=== PATIENT | female | born 1965 | race Caucasian/White ===

== ENCOUNTER → 2016-09-18 | Outpatient (CLI) | payer OTHER ==
--- NOTE | 2016-09-18 10:38 | WWHP ---
DATE OF SERVICE: 09/18/2016 CHIEF COMPLAINT: The patient is here for her routine gynecologic exam and mammogram. HPI: This is a 51-year-old, G2, P2 with an LMP of 2011. She is status post vaginal hysterectomy. This was done for precancerous changes of the cervix. A Pap smear was negative last year and Pap smears have now been discontinued. She is without gynecologic complaints. 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 She also has seasonal allergies, type 2 diabetes, chronic hypertension, elevated cholesterol and gastroesophageal reflux disease. MEDICATIONS: 1. Zyrtec p.r.n. 2. Metformin 500 mg daily. 3. Omeprazole 20 mg daily. 4. Cozaar 25 mg daily. 5. Multivitamin 1 daily. 6. Pravastatin 20 mg daily. 7. Calcium supplement 500 mg daily. ALLERGIES: No known drug allergies. 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 SOCIAL HISTORY: She denies tobacco, alcohol, and dug use. She has been since 1986. She is dating somebody since 2016, but she states she is not sexually active. She is considered disabled because of her hearing loss. She has 2 grandchildren. REVIEW OF SYSTEMS: Weight has been stable. She denies respiratory, cardiac, or GI problems. PHYSICAL EXAM: Blood pressure 111/66. Height 5 feet 4 inches. Weight 254 pounds. Temperature 96.1, pulse 82. This a well-developed, heavyset white female who is alert and oriented x3 in no acute distress. HEENT is within normal limits. NECK: Supple without mass or thyromegaly. CHEST AND LUNGS: Clear to auscultation. HEART: Regular rate and rhythm. Breasts are without mass or discharge. Axillary exam is negative for adenopathy. BACK: Negative for CVA tenderness. ABDOMEN: Obese, soft, nontender, without palpable masses. PELVIC EXAM: Normal external genitalia. Vagina appears normal with no evidence of prolapse and no significant atrophy. Bimanual exam is negative for mass or tenderness. Rectovaginal exam is negative for mass or tenderness and is negative for occult blood. EXTREMITIES: Nontender. IMPRESSION: A 51-year-old female, status post vaginal hysterectomy for precancerous changes with normal gynecologic exam. PLAN: 1. Pap smears have been discontinued. 2. Self breast examination was discussed. 3. Mammogram will be done today. 4. Osteoporosis prevention was discussed. 5. She will return in one year.
--- NOTE | 2016-09-18 10:48 | MM ---
Reason for exam: screening (asymptomatic). Last mammogram was performed 1 year and 4 months ago. History: Patient has history of endometrial cancer at age 45. Family history of breast cancer in grandmother. Benign stereotactic core biopsy of the right breast, February 17, 2004. Core biopsy of the right breast. Physical Findings: A clinical breast exam by your physician is recommended on an annual basis and results should be correlated with mammographic findings. MG Screening Mammo w CAD Bilateral CC and MLO view(s) were taken. Prior study comparison: June 01, 2015, bilateral MG screening mammo w CAD. May 21, 2014, left breast MG work up mamm w CAD LT. The breast tissue is almost entirely fat. Previous mammotome biopsy within the right breast. There is chronic nodularity bilaterally. No significant changes when compared with prior studies. ASSESSMENT: Benign, BI-RAD 2 RECOMMENDATION: Routine screening mammogram of both breasts in 1 year.
== END | disposition home or self-care (01) ==
LOC: WWCWWP 07:52
PROVIDERS: ATTEND Obstetrics & Gynecology
DX: Z12.31 Encounter for screening mammogram for malignant neoplasm of breast (principal)

== ENCOUNTER → 2017-08-22 | Outpatient (CLI) | payer OTHER ==
[2017-08-22 08:05] LABS: ALT 23 U/L (9-52); AST 21 U/L (14-36); Albumin 4.1 g/dL (3.5-5.0); Alkaline Phosphatase 129 U/L (38-126); Amylase 53 U/L (30-110); Anion Gap 12 mmol/L; Blood Urea Nitrogen 10 mg/dL (7-17); Calcium 9.1 mg/dL (8.4-10.2); Carbon Dioxide 29 mmol/L (22-30); Chloride 103 mmol/L (98-107); Cholesterol 128 mg/dL (<200); Glucose 127 mg/dL (74-99); HDL Cholesterol 40 mg/dL (40-60); LDL Cholesterol,Calculated 61 mg/dL (0-99); Lipase 67 U/L (23-300); Potassium 5.3 mmol/L (3.5-5.1); Sodium 144 mmol/L (137-145); Total Bilirubin 0.6 mg/dL (0.2-1.3); Total Protein 6.8 g/dL (6.3-8.2); Triglycerides 135 mg/dL (<150)
--- NOTE | 2017-08-22 13:12 | US ---
EXAMINATION TYPE: US abdomen complete DATE OF EXAM: 08/22/2017 COMPARISON: NONE CLINICAL HISTORY: R12 Heartburn,R19.7 diarrhea. EXAM MEASUREMENTS: Liver Length: 16.3 cm Gallbladder Wall: 0.3 cm CBD: 0.4 cm Spleen: 12.8 cm Right Kidney: 11.2 x 4.4 x 4.4 cm Left Kidney: 11.2 x 6.1 x 4.7 cm Morbidly obese patient with extensive bowel gas. Technically difficult study. Pancreas: Mostly obscured by bowel gas, portions visualized wnl Liver: Increased attenuation, decreased visualization of vessels, hypoechoic area found in left lobe measuring 1.5 x 1.6 x 2.0cm Gallbladder: partially obscured by bowel gas, cholelithiasis without wall thickening Evidence for sonographic Curiel's sign: no CBD: wnl Spleen: Upper limits of normal Right Kidney: wnl Left Kidney: inferior lateral portion obscured by bowel gas, portions visualized wnl Upper IVC: not well visualized Abd Aorta: Some portions obscured by overlying bowel gas, portions visualized wnl The visualized liver is heterogeneously hyperechoic. Evaluation for focal masses is suboptimal due to the heterogeneity. Technologist hercules poorly defined 2.0 cm area anterior left hepatic lobe. No intr ahepatic ductal dilatation is seen. The intrahepatic portion of the IVC and visualized abdominal aort a are within normal limits. Shadowing mobile gallstones are present. There is no pericholecystic flui d or abnormal gallbladder wall thickening. Common bile duct is unremarkable. The visualized portions of the pancreas are heterogeneous without worrisome solid or cystic mass or ductal dilatation. Port ions are secured by overlying bowel gas per technologist. The spleen is unremarkable. Kidneys are sy mmetric and free of hydronephrosis. No renal lesions are seen on images saved. IMPRESSION: 1. Gallstones without secondary ultrasound evidence for acute cholecystitis. 2. Heterogeneous hyperechoic appearance of liver could reflect product of diffuse fatty infiltration or underlying hepatocellular disease. Former is favored. Cannot exclude 2 cm lesion anterior left hep atic lobe though favor focal fatty sparing. Need to further investigate by liver protocol contrast en hanced CT or MRI should be based on clinical and lab correlation. Spleen measures upper limits of nor mal in size.
== END | disposition home or self-care (01) ==
LOC: RADUSWWP 07:10
PROVIDERS: ATTEND Family Medicine
DX: K80.20 Calculus of gallbladder without cholecystitis without obstruction (principal); R93.5 Abnormal findings on diagnostic imaging of other abdominal regions, including retroperitoneum; R19.7 Diarrhea, unspecified; R12 Heartburn; E78.2 Mixed hyperlipidemia; I10 Essential (primary) hypertension
CPT/HCPCS: 76700; 80053; 80061; 82150; 83690; 84443

== ENCOUNTER → 2017-09-13 | Outpatient (CLI) | payer MEDICARE, OTHER ==
[2017-09-13 07:09] LABS: Blood Urea Nitrogen 14 mg/dL (7-17)
--- NOTE | 2017-09-13 09:10 | CT ---
EXAMINATION TYPE: CT abdomen w con DATE OF EXAM: 09/13/2017 HISTORY: RUQ pain, abn US CT DLP: 1400mGycm Automated Exposure Control for Dose Reduction was Utilized. CONTRAST: CT scan of the abdomen is performed with IV Contrast, patient injected with 100 mL of Isovue 300. COMPARISON: None. FINDINGS: LUNG BASES: No significant abnormality is appreciated. LIVER/GB: There is mild hepatic steatosis throughout the liver. More focally around the avinash hepatis there is a geographic area of hypoattenuation with vessels coursing through this area. This is a com mon location for more focal fatty infiltration and vessels coursing through the area of fever benign parenchymal change rather than infiltrating neoplasm. The previously seen abnormality within the left hepatic lobe on ultrasound is not reproduced on CT. No focal lesion is seen in that location. No int rahepatic biliary ductal dilatation is present. PANCREAS: No significant abnormality is seen. No ductal dilatation. SPLEEN: No significant abnormality is seen. No splenomegaly. ADRENALS: No nodularity or thickening. KIDNEYS: Kidneys enhance symmetrically. No hydronephrosis. BOWEL: Small descending duodenal diverticulum is incidentally noted. Bowel is nondilated. There is no distention of the transverse colon and hepatic flexure that may relate to mild colitis with surround ing prominence of the vasa recta or incomplete distention. Appendix is air-filled and within normal l imits. LYMPH NODES: No greater than 1cm abdominal or pelvic lymph nodes are appreciated. OSSEOUS STRUCTURES: Mild multilevel degenerative changes of the visualized spine. No suspicious osseo us lesions. IMPRESSION: Mild degree of hepatic steatosis with more focal geographic probable area of focal fatty infiltration around the avinash hepatis that appears geographic. This overall appears nonaggressive as vasculature courses through the parenchyma. Notably the focal lesion seen on the prior ultrasound has no CT corre late and could be artifactual or related to subtle focal fatty sparing. Correlation with liver functi on tests is recommended. If there is further clinical concern MR could be confirmatory.
== END ==
LOC: RADCTMAIN 06:34
PROVIDERS: ATTEND Family Medicine
DX: K76.0 Fatty (change of) liver, not elsewhere classified (principal)
CPT/HCPCS: 82565; 84520; 74160; 36415; Q9967

== ENCOUNTER → 2017-12-31 | Outpatient (CLI) | payer MEDICARE, OTHER ==
[2017-12-31 10:50] VITALS: BP 140/65; PULSE 76; TEMP 96.7; BMI 40.1
--- NOTE | 2017-12-31 11:31 | P.HPOB ---
History of Present Illness H&P Date: 12/31/17 Chief Complaint: The patient is here for her routine gynecologic exam and mammogram. This is a 52-year-old G2 PII with an LMP of 2011. She is status post vaginal hysterectomy. She is without gynecologic complaints. She has noticed mild hot flashes over the past one month. Review of Systems She has had a net loss of 5 pounds over the last year. She gained up to 275 pounds and lost about 25 pounds with diet and exercise. She denies respiratory , cardiac, or G.I. problems. Past Medical History Past Medical History: Diabetes Mellitus (Type II diabetes), GERD/Reflux, Hearing Disorder / Deafness (Born with partial deafness. Wears bilateral hearing aids.), Hyperlipidemia, Hypertension Additional Past Medical History / Comment(s): HIATAL HERNIA. Seasonal allergies. 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 She had a hysterectomy for "precancerous changes" in 2011. History of Any Multi-Drug Resistant Organisms: None Reported Past Surgical History: Bladder Surgery, Hysterectomy (Vaginal 2011), Tonsillectomy Additional Past Surgical History / Comment(s): BLADDER SLING PROCEDURE. Colonoscopy 2014. Past Anesthesia/Blood Transfusion Reactions: Postoperative Nausea & Vomiting ( PONV) Past Psychological History: No Psychological Hx Reported Smoking Status: Never smoker Past Alcohol Use History: None Reported Past Drug Use History: None Reported Additional History: She is and is considered disabled because of her hearing loss. - Past Family History Mother Family Medical History: Cancer (Long and cervical cancer) Additional Family Medical History / Comment(s): BREAST CA Father Family Medical History: Cancer, COPD, Diabetes Mellitus Additional Family Medical History / Comment(s): LUNG CA Medications and Allergies Home Medications Medication Instructions Recorded Confirmed Type metFORMIN HCL [metFORMIN HCL ER] PO HS 12/31/17 History Allergies Allergy/AdvReac Type Severity Reaction Status Date / Time No Known Allergies Allergy Verified 12/31/17 10:30 Exam Vital Signs Temp Pulse BP 12/31/17 10:46 96.7 F L 76 140/65 Intake and Output 12/30/17 12/31/17 12/31/17 22:59 06:59 14:59 Other: Weight 112.945 kg Height 5'6", BMI 40.2. This is a well-developed well-nourished heavyset white female who is alert and oriented times 3 in no acute distress. HEENT: Within normal limits. NECK: Supple without mass or thyromegaly. CHEST AND LUNGS: Clear to auscultation. HEART: Regular rate and rhythm. BREASTS: Are without mass or discharge. AXILLARY EXAM: Negative for adenopathy. BACK: Negative for CVA tenderness. ABDOMEN: Soft, obese, nontender, without palpable masses. PELVIC EXAM: External genitalia appears normal with minimal atrophy. Vagina appears normal minimal atrophy. There is no evidence of prolapse. Bimanual examination is negative for mass or tenderness. RECTAL EXAM: Rectovaginal exam is negative for mass or tenderness and is negative for occult blood. EXTREMITIES: Nontender. IMPRESSION: 1. 52-year-old perimenopausal female status post vaginal hysterectomy for "pre- cancerous changes". 2. Mild vasomotor symptoms. PLAN: 1. Pap smear on 06/01/15 was negative. Pap smears have been discontinued. 2. Self breast awareness was discussed with the patient. 3. Mammogram will be done today. 4. Osteoporosis prevention was discussed. 5. She will return one year.
--- NOTE | 2018-01-01 11:47 | MM ---
Reason for exam: screening (asymptomatic). Last mammogram was performed 1 year and 3 months ago. History: Patient has history of endometrial cancer at age 45. Family history of breast cancer in grandmother. Benign stereotactic core biopsy of the right breast, February 17, 2004. Core biopsy of the right breast. Physical Findings: A clinical breast exam by your physician is recommended on an annual basis and results should be correlated with mammographic findings. MG Screening Mammo w CAD Bilateral CC and MLO view(s) were taken. Prior study comparison: September 18, 2016, bilateral MG screening mammo w CAD. June 01, 2015, bilateral MG screening mammo w CAD. There are scattered fibroglandular densities. There are benign appearing round calcifications in the left breast. Previous mammotome biopsy in the right breast. There is chronic nodularity bilaterally. There is no discrete abnormality. ASSESSMENT: Benign, BI-RAD 2 RECOMMENDATION: Routine screening mammogram of both breasts in 1 year.
== END | disposition home or self-care (01) ==
LOC: WWCWWP 10:09
PROVIDERS: ATTEND Obstetrics & Gynecology
DX: Z12.31 Encounter for screening mammogram for malignant neoplasm of breast (principal)
CPT/HCPCS: 77067

== ENCOUNTER → 2019-05-15 | Outpatient (CLI) | payer MEDICARE, OTHER ==
--- NOTE | 2019-05-15 10:18 | BD ---
EXAMINATION TYPE: Axial Bone Density DATE OF EXAM: 05/15/2019 COMPARISON: NONE CLINICAL HISTORY: M 89.9 Height: 5 FT 4 IN Weight: 243 FRAX RISK QUESTIONS: Alcohol (3 or more units per day): NO Family History (Parent hip fracture): NO Glucocorticoids (More than 3mos): NO (Ex: prednisone, prednisolone, methylprednisolone, dexamethasone, and hydrocortisone). History of Fracture in Adulthood: NO Secondary Osteoporosis: 1. Type 1 Diabetes: NO 2. Hyperthyroidism: NO 3. Menopause before 45: NO 4. Malnutrition: NO 5. Chronic liver disease: NO Rheumatoid Arthritis: NO Current Tobacco Use: NO RISK FACTORS HISTORY OF: Active: YES Postmenopausal woman: PART HYST AGE 48 Lost more than 2 inches in height since high school: YES MEDICATIONS: Additional Medications: METFORMIN, CHOLESTEROL MEDS, BLOOD PRESSURE MEDS, VITAMINS Additional History: EXAM MEASUREMENTS: Bone mineral densitometry was performed using the [employer] System. Bone mineral density as measured about the Lumbar spine is: ----- L1-L4(G/cm2): 1.482 T Score Values are as follows: ----- L2: 1.6 ----- L3: 3.9 ----- L4: 2.6 ----- L1-L4: 2.5 BASELINE Bone mineral density about the R hip (g/cm2): 1.023 Bone mineral density about the L hip (g/cm2): 0.969 T Score values are as follows: -----R Neck: -0.1 -----L Neck: -0.5 -----R Total: 1.5 -----L Total: 1.3 BASELINE IMPRESSION: Normal (Values between +1 and -1 indicate normal bone mass). Consider repeating this study in 5 year s or sooner if there is some new clinical indication. NOTE: T-SCORE=SD OF THE YOUNG ADULT MEAN.
--- NOTE | 2019-05-18 11:30 | MM ---
Reason for exam: screening (asymptomatic). Last mammogram was performed 1 year and 4 months ago. History: Patient has history of endometrial cancer at age 45. Family history of breast cancer in grandmother. Benign stereotactic core biopsy of the right breast, February 17, 2004. Core biopsy of the right breast. Physical Findings: A clinical breast exam by your physician is recommended on an annual basis and results should be correlated with mammographic findings. MG 3D Screening Mammo W/Cad Bilateral CC and MLO view(s) were taken. Prior study comparison: December 31, 2017, bilateral MG screening mammo w CAD. September 18, 2016, bilateral MG screening mammo w CAD. There are scattered fibroglandular densities. Benign appearing bilateral calcifications. No suspicious abnormality. Right biopsy marker noted. No significant changes when compared with prior studies. ASSESSMENT: Benign, BI-RAD 2 RECOMMENDATION: Routine screening mammogram of both breasts in 1 year.
== END | disposition home or self-care (01) ==
LOC: RADMAMWWP 08:26
PROVIDERS: ATTEND Internal Medicine
DX: Z12.31 Encounter for screening mammogram for malignant neoplasm of breast (principal); M89.9 Disorder of bone, unspecified; Z78.0 Asymptomatic menopausal state
CPT/HCPCS: 77063; 77067; 77080

== ENCOUNTER → 2019-06-22 | Outpatient (CLI) | payer MEDICARE, OTHER | END | disposition home or self-care (01) ==

== ENCOUNTER → 2020-10-18 | Outpatient (CLI) | payer MEDICARE ==
--- NOTE | 2020-10-20 11:41 | MM ---
Reason for exam: screening (asymptomatic). Last mammogram was performed 1 year and 5 months ago. History: Patient has history of endometrial cancer at age 45. Family history of breast cancer in grandmother. Benign stereotactic core biopsy of the right breast, February 17, 2004. Core biopsy of the right breast. Physical Findings: A clinical breast exam by your physician is recommended on an annual basis and results should be correlated with mammographic findings. MG 3D Screening Mammo W/Cad Bilateral CC and MLO view(s) were taken. Prior study comparison: May 15, 2019, bilateral MG 3d screening mammo w/cad. December 31, 2017, bilateral MG screening mammo w CAD. The breast tissue is almost entirely fat. Stable benign calcifications. There is no discrete abnormality. ASSESSMENT: Benign, BI-RAD 2 RECOMMENDATION: Routine screening mammogram of both breasts in 1 year.
== END | disposition home or self-care (01) ==
LOC: RADMAMWWP 07:59
PROVIDERS: ATTEND Internal Medicine
DX: Z12.31 Encounter for screening mammogram for malignant neoplasm of breast (principal); Z85.42 Personal history of malignant neoplasm of other parts of uterus; Z80.3 Family history of malignant neoplasm of breast
CPT/HCPCS: 77063; 77067

== ENCOUNTER → 2021-09-13 | Outpatient (CLI) | payer MEDICARE ==
[2021-09-13 10:25] VITALS: BP 136/88; PULSE 98; RESP 18; TEMP 98.2
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
[2021-09-14 14:54] LABS: Gardnerella Negative (Negative); Source Vagina; Trichomonas Negative (Negative)
--- NOTE | 2021-09-15 10:56 | P.PN ---
Progress Note - Text Progress Note Date: 09/15/21 OUTPATIENT FOLLOW-UP NOTE TEST(S)/RESULTS: Affirm vaginitis panel done on 09/13/2021 was negative for Bárbara, Gardnerella, and Trichomonas. METHOD OF NOTIFICATION: The patient was notified by phone. PATIENT COMMENTS: DIAGNOSIS: Negative affirm vaginitis panel. DISCUSSION: GC and chlamydia testing are pending. PLAN: As above.
== END ==
LOC: WWCWWP 09:56
PROVIDERS: ATTEND Obstetrics & Gynecology
DX: Z01.419 Encounter for gynecological examination (general) (routine) without abnormal findings (principal); E11.9 Type 2 diabetes mellitus without complications; E78.5 Hyperlipidemia, unspecified; I10 Essential (primary) hypertension; Z90.710 Acquired absence of both cervix and uterus; Z79.84 Long term (current) use of oral hypoglycemic drugs
CPT/HCPCS: 87480; 87491; 87510; 87591; 87660

== ENCOUNTER → 2021-12-08 | Outpatient (CLI) | payer MEDICARE ==
--- NOTE | 2021-12-08 09:55 | MM ---
Reason for Exam: Screening (asymptomatic). Last mammogram was performed 1 year(s) and 1 month(s) ago. Patient History: Menarche at age 12. First Full-Term at age 19. Hysterectomy at age 46. Endometrial cancer, age 45. Core Biopsy on the Right side. 02/17/2004, Benign Stereotactic Core Biopsy on the right side. Maternal grandmother had breast cancer. Risk Values: Amanda 5 year model risk: 1.3%. NCI Lifetime model risk: 8.7%. Prior Study Comparison: 12/31/2017 Bilateral Screening Mammogram, [facility]. 05/15/2019 Bilateral Screening Mammogram, [facility]. 10/18/2020 Bilateral Screening Mammogram, [facility]. Tissue Density: There are scattered fibroglandular densities. Findings: Analyzed By CAD. Pattern appears stable. Chronic nodularity is right. No significant interval changes are evident. No suspicious groups of microcalcifications, spiculated or lobular masses, architectural distortion or other secondary signs of malignancy are mammographically apparent. Overall Assessment: Benign, BI-RAD 2 Management: Screening Mammogram of both breasts in 1 year. A negative mammogram report should not preclude additional follow up of suspicious palpable abnormalities. Patient should continue monthly self breast exam. A clinical breast exam by your physician is recommended on an annual basis and results should be correlated with mammographic findings. Electronically signed and approved by: Yovani Ro D.O. Radiologis
== END | disposition home or self-care (01) ==
LOC: RADMAMWWP 07:38
PROVIDERS: ATTEND Internal Medicine
DX: Z12.31 Encounter for screening mammogram for malignant neoplasm of breast (principal); Z85.89 Personal history of malignant neoplasm of other organs and systems; Z80.3 Family history of malignant neoplasm of breast; Z90.710 Acquired absence of both cervix and uterus
CPT/HCPCS: 77063; 77067

== ENCOUNTER → 2022-05-07 | Outpatient (CLI) | payer MEDICARE, OTHER ==
--- NOTE | 2022-05-07 12:23 | XR ---
EXAMINATION TYPE: XR knee complete LT DATE OF EXAM: 05/07/2022 12:08 PM INDICATION: Patient age:Female; 56 years old; Reason for study: M25.562 Left knee pain/injury; PHH. COMPARISON: Left tib-fib radiograph 06/22/2019 TECHNIQUE: The Left knee(s) was examined in frontal, lateral, and oblique projections. FINDINGS: No acute fracture or dislocation. Mild medial tibiofemoral joint space narrowing and clifford llofemoral femoral joint space narrowing. Marginal osteophytosis of the medial tibiofemoral joint. No joint effusion or soft tissue edema. IMPRESSION: 1. No acute osseous pathology. 2. Mild osteoarthritic changes.
== END | disposition home or self-care (01) ==
LOC: RADXRMAIN 11:42
PROVIDERS: ATTEND Internal Medicine
DX: M17.12 Unilateral primary osteoarthritis, left knee (principal)

== ENCOUNTER → 2022-12-31 | Outpatient (CLI) | payer MEDICARE ==
--- NOTE | 2023-01-02 17:53 | MM ---
Reason for Exam: Screening (asymptomatic). Last mammogram was performed 1 year(s) and 1 month(s) ago. Patient History: Menarche at age 12. First Full-Term at age 19. Hysterectomy at age 46. Postmenopausal. Core Biopsy on the Right side. 02/17/2004, Benign Stereotactic Core Biopsy on the right side. Maternal grandmother had breast cancer. Risk Values: Amanda 5 year model risk: 1.4%. NCI Lifetime model risk: 8.5%. Prior Study Comparison: 05/15/2019 Bilateral Screening Mammogram, [facility]. 10/18/2020 Bilateral Screening Mammogram, [facility]. 12/08/2021 Bilateral MG 3D screening mammo w/cad, [facility]. Tissue Density: There are scattered fibroglandular densities. Findings: Analyzed By CAD. Appears stable. The core marker is within the left breast. Surgical calcification in couple punctate calcifications are within the left breast. No significant interval changes are evident. Chronic nodularity is present bilaterally. No suspicious groups of microcalcifications, spiculated or lobular masses, architectural distortion or other secondary signs of malignancy are mammographically apparent. Overall Assessment: Benign, BI-RAD 2 Management: Screening Mammogram of both breasts in 1 year. A negative mammogram report should not preclude additional follow up of suspicious palpable abnormalities. Patient should continue monthly self breast exam. A clinical breast exam by your physician is recommended on an annual basis and results should be correlated with mammographic findings. Electronically signed and approved by: Yovani Ro D.O. Radiologis
== END | disposition home or self-care (01) ==
LOC: RADMAMWWP 15:44
PROVIDERS: ATTEND Internal Medicine
DX: Z12.31 Encounter for screening mammogram for malignant neoplasm of breast (principal); Z78.0 Asymptomatic menopausal state; Z80.3 Family history of malignant neoplasm of breast
CPT/HCPCS: 77063; 77067

== ENCOUNTER → 2024-02-17 | Outpatient (CLI) | payer MEDICARE ==
--- NOTE | 2024-02-17 19:31 | MM ---
Reason for Exam: Screening (asymptomatic). Last mammogram was performed 1 year(s) and 2 month(s) ago. Patient History: Menarche at age 12. First Full-Term at age 19. Hysterectomy at age 46. Postmenopausal. Core Biopsy on the Right side. 02/17/2004, Benign Stereotactic Core Biopsy on the right side. Maternal grandmother had breast cancer. Risk Values: Amanda 5 year model risk: 1.4%. NCI Lifetime model risk: 8.3%. Prior Study Comparison: 10/18/2020 Bilateral Screening Mammogram, [facility]. 12/08/2021 Bilateral MG 3D screening mammo w/cad, [facility]. 12/31/2022 Bilateral MG 3D screening mammo w/cad, [facility]. Tissue Density: There are scattered areas of fibroglandular density. Findings: Analyzed By CAD. The pattern is symmetrical. Scattered benign punctate calcifications are present bilaterally. Core markers within the right breast No suspicious groups of microcalcifications, spiculated or lobular masses, architectural distortion or other secondary signs of malignancy are mammographically apparent. Overall Assessment: Benign, BI-RAD 2 Management: Screening Mammogram of both breasts in 1 year. A negative mammogram report should not preclude additional follow up of suspicious palpable abnormalities. Patient should continue monthly self breast exam. A clinical breast exam by your physician is recommended on an annual basis and results should be correlated with mammographic findings. Note on Amanda scores and lifetime risk: 1. A Amanda score greater than 3% is considered moderate risk. If this is the case, consider specialist referral to assess eligibility for a risk reducing agent. 2. If overall lifetime risk for the development of breast cancer is 20% or higher, the patient may qualify for future screening with alternating mammogram and breast MRI. [facility], , 02/17/2024 7:25 PM. Electronically signed and approved by: Yovani Ro D.O. Radiologis
== END | disposition home or self-care (01) ==
LOC: RADMAMWWP 08:40
PROVIDERS: ATTEND Internal Medicine
DX: Z12.31 Encounter for screening mammogram for malignant neoplasm of breast (principal); R92.323 Mammographic fibroglandular density, bilateral breasts; Z80.3 Family history of malignant neoplasm of breast
CPT/HCPCS: 77063; 77067

== ENCOUNTER 2024-07-26 06:22 | Emergency (ER) | payer MEDICARE ==
[2024-07-26 06:27] VITALS: BP 152/85; PULSE 79; RESP 16; TEMP 97.6
--- NOTE | 2024-07-26 06:34 | ED ---
ENT HPI - General Chief complaint: ENT Stated complaint: throat pain Time Seen by Provider: 07/26/24 06:33 Source: patient, RN notes reviewed Mode of arrival: ambulatory Limitations: no limitations - History of Present Illness Initial comments: 59-year-old female presented the ER for evaluation of sore throat. Patient states for the past 3 days she has been having a sore throat. She was seen by PCP and diagnosed with strep throat started on Augmentin on Saturday. She has been taking this as prescribed. Patient states she woke up this morning to worsening pain. She does report a mild runny nose as well. She states her brother has also been mildly ill. She denies any fevers or chills. She has not taken anything for symptoms at this time. Patient has no other complaints - Related Data Home Medications Medication Instructions Recorded Confirmed metFORMIN HCL [metFORMIN HCL ER] 750 mg PO HS 12/31/17 09/13/21 Allergies Allergy/AdvReac Type Severity Reaction Status Date / Time No Known Allergies Allergy Verified 07/26/24 06:25 Review of Systems ROS Statement: Those systems with pertinent positive or pertinent negative responses have been documented in the HPI. ROS Other: All systems not noted in ROS Statement are negative. Past Medical History Past Medical History: Diabetes Mellitus, GERD/Reflux, Hearing Disorder / Deafness, Hyperlipidemia, Hypertension Additional Past Medical History / Comment(s): Type 2 diabetes. HIATAL HERNIA. Seasonal allergies. PAST PATIENT FINANCIAL REP HISTORY: She has no history of STDs. She had a hysterectomy for "precancerous changes" in 2011. History of Any Multi-Drug Resistant Organisms: None Reported Past Surgical History: Bladder Surgery, Hysterectomy, Tonsillectomy Additional Past Surgical History / Comment(s): Vaginal hysterectomy with BLADDER SLING PROCEDURE 2011. Colonoscopy 2014. Past Anesthesia/Blood Transfusion Reactions: Postoperative Nausea & Vomiting (PONV) Past Psychological History: No Psychological Hx Reported Smoking Status: Never smoker Past Alcohol Use History: None Reported Past Drug Use History: None Reported - Past Family History Mother Family Medical History: Cancer Additional Family Medical History / Comment(s): BREAST CA Father Family Medical History: Cancer, COPD, Diabetes Mellitus Additional Family Medical History / Comment(s): LUNG CA General Exam Limitations: no limitations General appearance: alert, in no apparent distress ENT exam: Present: mucous membranes moist (Erythema to pharynx no tonsillar edema or exudates. No uvular deviation), TM's normal bilaterally Respiratory exam: Present: normal lung sounds bilaterally. Absent: respiratory distress, wheezes, rales, rhonchi, stridor Cardiovascular Exam: Present: regular rate, normal rhythm, normal heart sounds. Absent: systolic murmur, diastolic murmur, rubs, gallop, clicks Extremities exam: Present: normal inspection, full ROM, normal capillary refill. Absent: tenderness, pedal edema, joint swelling, calf tenderness Neurological exam: Present: alert, oriented X3, CN II-XII intact Skin exam: Present: warm, dry, intact, normal color. Absent: rash Course Vital Signs 07/26/24 06:25 Temperature 97.6 F Pulse Rate 79 Respiratory 16 Rate Blood Pressure 152/85 O2 Sat by Pulse 99 Oximetry Medical Decision Making - Medical Decision Making Was pt. sent in by a medical professional or institution (MALVIN Beebe, GEOTECHNICAL ENGINEERING TECHNICIAN, urgent care, hospital, or residential...) When possible be specific @ -No Did you speak to anyone other than the patient for history (EMS, parent, family, police, friend...)? What history was obtained from this source @ -No Did you review nursing and triage notes (agree or disagree)? Why? @ -I reviewed and agree with nursing and triage notes Were old charts reviewed (outside hosp., previous admission, EMS record, old EKG, old radiological studies, urgent care reports/EKG's, residential records)? Report findings @ -No old charts were reviewed Differential Diagnosis (chest pain, altered mental status, abdominal pain women, abdominal pain men, vaginal bleeding, weakness, fever, dyspnea, syncope, headache, dizziness, GI bleed, back pain, seizure, CVA, palpatations, mental health, musculoskeletal)? @ -Strep pharyngitis, peritonsillar abscess, viral illness... This list is not meant to be all-inclusive EKG interpreted by me (3pts min.). @ -None done X-rays interpreted by me (1pt min.). @ -None done CT interpreted by me (1pt min.). @ -None done U/S interpreted by me (1pt. min.). @ -None done What testing was considered but not performed or refused? (CT, X-rays, U/S, labs)? Why? @ -None What meds were considered but not given or refused? Why? @ -None Did you discuss the management of the patient with other professionals (professionals i.e. , PA, GEOTECHNICAL ENGINEERING TECHNICIAN, lab, RT, psych nurse, social work instructor, fur glazer, teacher, dog license officer supervisor, lining caser)? Give summary @ -No Was smoking cessation discussed for >3mins.? @ -No Was critical care preformed (if so, how long)? @ -No Were there social determinants of health that impacted care today? How? (Homelessness, low income, unemployed, alcoholism, drug addiction, transportation, low edu. Level, literacy, decrease access to med. care, half-way, rehab)? @ -No Was there de-escalation of care discussed even if they declined (Discuss DNR or withdrawal of care, Hospice)? DNR status @ -No What co-morbidities impacted this encounter? (DM, HTN, Smoking, COPD, CAD, Cancer, CVA, ARF, Chemo, Hep., AIDS, mental health diagnosis, sleep apnea, morbid obesity)? @ -None Was patient admitted / discharged? Hospital course, mention meds given and route, prescriptions, significant lab abnormalities, going to OR and other pertinent info. @ -Discharge. 59-year-old female presented the ER for evaluation of sore throat. Patient diagnosed with strep throat on Saturday by PCP. Exam showing erythema to oropharynx. There is no tonsillar edema, uvular deviation or exudates present. Patient in no signs of acute distress. Vitals stable. As patient complaining of cough viral swabs were obtained and negative. Patient given ibuprofen for pain control, with improvement. Patient will be discharged stable condition and advised to take [id number] ibuprofen and Tylenol for pain control. Continue augmentin. Appropriate follow-up and return parameters discussed. Patient verbally expressed understanding and agreement with care plan. Case discussed with ED attending, Dr. Ni. Undiagnosed new problem with uncertain prognosis? @ -No Drug Therapy requiring intensive monitoring for toxicity (Heparin, Nitro, Insulin, Cardizem)? @ -No Were any procedures done? @ -No Diagnosis/symptom? @ -Bacterial pharyngitis Acute, or Chronic, or Acute on Chronic? @ -Acute Uncomplicated (without systemic symptoms) or Complicated (systemic symptoms)? @ -Uncomplicated Side effects of treatment? @ -No Exacerbation, Progression, or Severe Exacerbation? @ -No Poses a threat to life or bodily function? How? (Chest pain, USA, PA, pneumonia, PE, COPD, DKA, ARF, appy, cholecystitis, CVA, Diverticulitis, Homicidal, Suicidal, threat to staff... and all critical care pts) @ -No - Lab Data Lab Results 07/26/24 Range/Units 06:38 Influenza Type A (PCR) Not Detected (Not Detectd) Influenza Type B (PCR) Not Detected (Not Detectd) RSV (PCR) Not Detected (Not Detectd) SARS-CoV-2 (PCR) Not Detected (Not Detectd) Disposition Clinical Impression: Sore throat Disposition: HOME SELF-CARE Condition: Stable Additional Instructions: You may take OTC ibuprofen and tylenol for pain control. I also recommend cold drinks. Follow-up closley with PCP. Return to the ER for any new or worsening symptoms. Is patient prescribed a controlled substance at d/c from ED?: No Referrals: Bryon Ramirez MD [Primary Care Provider] - 1-2 days Time of Disposition: 07:42
[2024-07-26] MEDS: IBUPROFEN 800 MG TAB PO STA (06:41)
[2024-07-26 07:30] LABS: Influenza A Not Detected (Not Detectd); Influenza B Not Detected (Not Detectd); RSV Not Detected (Not Detectd)
== END 2024-07-26 07:48 | disposition home or self-care (01) ==
LOC: EC 06:22
DX: J02.9 Acute pharyngitis, unspecified (principal)
CPT/HCPCS: 87636; 99283